=== PATIENT | female | born 1975 | race Hispanic/Latino ===

== ENCOUNTER 2022-06-14 09:59 | Emergency (ER) | payer OTHER ==
[~2022-06-14] VITALS: Ht 175.3 cm; Wt 117.9 kg
[2022-06-14 10:04] VITALS: BP 162/93
== END 2022-06-14 11:19 | disposition home or self-care (01) ==
LOC: EDH 09:59
DX: S01.01XA Laceration without foreign body of scalp, initial encounter (principal); I10 Essential (primary) hypertension; E78.00 Pure hypercholesterolemia, unspecified; Z90.49 Acquired absence of other specified parts of digestive tract; Z90.710 Acquired absence of both cervix and uterus; Z98.890 Other specified postprocedural states; Z88.6 Allergy status to analgesic agent; Z88.8 Allergy status to other drugs, medicaments and biological substances; X58.XXXA Exposure to other specified factors, initial encounter; Y93.89 Activity, other specified; Y92.89 Other specified places as the place of occurrence of the external cause; Y99.8 Other external cause status
CPT/HCPCS: 12002; 99282